=== PATIENT | male | born 1995 | race Caucasian/White ===

== ENCOUNTER → 2017-04-08 | Outpatient (CLI) | payer OTHER ==
[2017-04-08 11:56] LABS: BASOPHIL# 0.1 X10e3 (0-0.3); BASOPHIL% 1.2 % (0-2.5); EOSINOPHIL# 0.3 X10e3 (0-0.7); EOSINOPHIL% 6.9 % (0.0-7.0); HEMATOCRIT 41.5 % (38.0-50.0); HEMOGLOBIN 14.3 gm/dL (13.0-16.0); LYMPHOCYTE# 1.8 X10e3 (1.0-3.5); LYMPHOCYTE% 44.2 % (17.0-45.0); MEAN CORPUSCULAR HGB CONC 34.5 g/dL (30-36); MONOCYTE# 0.4 X10e3 (0-1.0); MONOCYTE% 10.1 % (3.0-12.0); NEUTROPHIL# 1.5 X10e3 (1.5-7.1); NEUTROPHIL% 37.6 % (40-75); RED BLOOD COUNT 4.77 X10e (3.90-5.60); RED CELL DISTRIBUTION WIDTH 12.3 % (11.0-15.5); WHITE BLOOD COUNT 4.1 X10e3 (4.0-10.5)
[2017-04-08 12:33] LABS: ALBUMIN SERUM 4.6 g/dL (3.5-5.0); BILIRUBIN,TOTAL 0.7 mg/dL (0.2-2.0); CALCIUM SERUM 9.2 mg/dL (8.4-10.2); GLOM FILT RATE Estimated 107.1 mL/min (>60); POTASSIUM 4.1 mmol/L (3.5-5.1); PROTEIN TOTAL SERUM 7.4 g/dL (6.0-8.3)
[2017-04-08 13:27] LABS: DIFF IND YES
[2017-04-08 13:29] LABS: PLATELET COUNT 99 X10e3 (140-420)
[2017-04-08 13:34] LABS: PLATELET ESTIMATE DECREASED (NORMAL); RBC NORMAL YES
== END | disposition home or self-care (01) ==
LOC: CLAB 11:14
PROVIDERS: Psychiatry & Neurology Psychiatry
DX: F90.2 Attention-deficit hyperactivity disorder, combined type (principal); F39 Unspecified mood [affective] disorder; F91.3 Oppositional defiant disorder
CPT/HCPCS: 36415; 80053; 80061; 84146; 85025